=== PATIENT | female | born 1990 | race American Indian/Alaskan Native ===

== ENCOUNTER 2019-11-30 23:36 | Emergency (ER) | payer MEDICAID ==
[2019-12-01 00:50] LABS: Bacteria,Urine 1+ /HPF (Negative); Bilirubin,Urine NEG (Negative); Blood,Urine MOD (Negative); Color,Urine Yellow (Yellow); Mucus,Urine FEW /HPF; Protein,Urine <15 mg/dL mg/dL (Negative); Urobilinogen,Urine < 2.0 mg/dL (<2.0)
[2019-12-01 01:03] LABS: Basophils # (Auto) 0.1 K/mm3 (0.0-0.1); Basophils % (Auto) 1.1 % (0.0-1.8); Eosinophils # (Auto) 0.1 K/mm3 (0.0-0.4); Eosinophils % (Auto) 2.1 % (0.0-4.3); Hematocrit 41.7 % (30.3-42.9); Hemoglobin 13.9 gm/dl (10.1-14.3); Lymphocytes # (Auto) 2.4 K/mm3 (1.2-5.4); Lymphocytes % (Auto) 47.9 % (13.4-35.0); Mean Corpuscular HGB Conc 33 % (30-34); Mean Corpuscular Volume 91 fl (79-97); Monocytes # (Auto) 0.5 K/mm3 (0.0-0.8); Platelet Count 173 K/mm3 (140-440); Red Cell Distribution Width 15.2 % (13.2-15.2)
[2019-12-01 01:18] LABS: Alanine Aminotransferase 41 units/L (7-56); Albumin 3.7 g/dL (3.9-5); BUN/Creatinine Ratio 11; Blood Urea Nitrogen 10 mg/dL (7-17); Calcium 8.8 mg/dL (8.4-10.2); Hemolysis Index 11
[2019-12-01 03:20] VITALS: BP 120/78
== END 2019-12-01 03:17 | disposition home or self-care (01) ==
LOC: ED 23:36
DX: R10.9 Unspecified abdominal pain (principal); Z53.21 Procedure and treatment not carried out due to patient leaving prior to being seen by health care provider
CPT/HCPCS: 36415; 80053; 81001; 83690; 84703; 85025

== ENCOUNTER 2020-07-09 21:45 | Emergency (ER) | payer MEDICAID | END 2020-07-09 23:30 | disposition left against medical advice (07) | LOC: ED 21:45 | DX: R10.9 Unspecified abdominal pain (principal); Z53.21 Procedure and treatment not carried out due to patient leaving prior to being seen by health care provider ==

== ENCOUNTER 2021-02-18 05:59 | Emergency (ER) | payer MEDICAID, OTHER ==
[2021-02-18 06:28] VITALS: BP 110/74
--- NOTE | 2021-02-18 07:53 | Emergency Department Report ---
ED Abdominal Pain HPI - General Chief Complaint: Abdominal Pain Stated Complaint: ABD PAIN Time Seen by Provider: 02/18/21 07:49 Source: patient Mode of arrival: Ambulatory Limitations: No Limitations - History of Present Illness Initial Comments: 30-year-old -[place] female presents to the emergency room complaining of severe abdominal pain for greater than 6 months. Patient states that the pain is worse on empty stomach. She states it is located the epigastric area. She states she sometimes gets nauseated. Pain is worse at night. She reports she is increasing her cigarette use as this helps calm her stomach. Patient does have a primary care provider Dr. Shipman but has not checked in with her. Patient has no past medical history currently just taken Tylenol for discomfort. Denies any dysuria no vomiting no fever no chills no chest pain no back pain. MD Complaint: abdominal pain Onset/Timin -: month(s) Location: epigastric Radiation: none Severity scale (0 -10): 5 - Related Data Previous Rx's Medication Instructions Recorded Last Taken Type Omeprazole 40 mg PO DAILY #30 capsule. 12/01/19 Unknown Rx Nitrofurantoin [place]/M-Cryst 100 mg PO Q12HR 10 Days #20 capsule 02/18/21 Unknown Rx [Macrobid CAP] Allergies Allergy/AdvReac Type Severity Reaction Status Date / Time No Known Allergies Allergy Verified 11/30/19 23:55 ED Review of Systems ROS: Stated complaint: ABD PAIN Other details as noted in HPI ED Past Medical Hx - Past Medical History Previous Medical History?: No - Surgical History Past Surgical History?: No - Social History Smoking Status: Never Smoker Substance Use Type: None - Medications Home Medications: Home Medications Medication Instructions Recorded Confirmed Last Taken Type Omeprazole 40 mg PO DAILY #30 capsule. 12/01/19 Unknown Rx Nitrofurantoin [place]/M-Cryst 100 mg PO Q12HR 10 Days #20 capsule 02/18/21 Unknown Rx [Macrobid CAP] ED Physical Exam - General Limitations: No Limitations General appearance: alert, in no apparent distress - Head Head exam: Present: atraumatic, normocephalic - Eye Eye exam: Present: normal appearance - Neck Neck exam: Present: normal inspection, full ROM - Respiratory Respiratory exam: Absent: accessory muscle use - Cardiovascular Cardiovascular Exam: Present: regular rate - GI/Abdominal GI/Abdominal exam: Present: soft. Absent: distended, tenderness - Extremities Exam Extremities exam: Present: normal inspection - Back Exam Back exam: Present: normal inspection - Neurological Exam Neurological exam: Present: alert, oriented X3, normal gait - Psychiatric Psychiatric exam: Present: normal affect, normal mood - Skin Skin exam: Present: warm, dry, intact, normal color. Absent: rash ED Course Vital Signs 02/18/21 06:28 Temperature 99 F Pulse Rate 86 Respiratory 18 Rate Blood Pressure 110/74 [Left] O2 Sat by Pulse 100 Oximetry ED Medical Decision Making - Lab Data Result diagrams: 02/18/21 07:09 02/18/21 07:09 - Medical Decision Making 30-year-old -[place] female presents to the emergency room complaining of severe abdominal pain for greater than 6 months. Patient states that the pain is worse on empty stomach. She states it is located the epigastric area. She states she sometimes gets nauseated. Pain is worse at night. She reports she is increasing her cigarette use as this helps calm her stomach. Patient does have a primary care provider Dr. Shipman but has not checked in with her. Patient has no past medical history currently just taken Tylenol for discomfort. Denies any dysuria no vomiting no fever no chills no chest pain no back pain. CBC CMP urinalysis Urinalysis shows urinary tract infection with positive nitrates 51 WBCs. Patient be placed on Macrobid 100 mg p.o. twice daily for 10 days. Instructed to increase her fluid intake. Void after intercourse. Do not hold your urine. Patient is recommended to follow-up with her primary care provider as well as a bearing maker and [facility]. Critical care attestation.: If time is entered above; I have spent that time in minutes in the direct care of this critically ill patient, excluding procedure time. ED Disposition Clinical Impression: UTI (urinary tract infection) Disposition: -01 TO HOME OR SELFCARE Is pt being admited?: No Does the pt Need Aspirin: No Condition: Stable Instructions: Abdominal Pain (ED), Urinary Tract Infection, Adult, [id number] Additional Instructions: Blood work looks good. Your urine shows that you have a urinary tract infection. I recommend to complete antibiotics as prescribed. Increase your fluid intake. Void after intercourse. Do not hold your urine for long period of time. Prescriptions: Nitrofurantoin [place]/M-Cryst [Macrobid CAP] 100 mg PO Q12HR 10 Days #20 capsule Referrals: [facility] [Other] - 3-5 Days [facility] [Provider Group] - 3-5 Days [facility] [Provider Group] - 3-5 Days Time of Disposition: 09:30
[2021-02-18 07:54] LABS: Basophils % (Auto) 0.6 % (0.0-1.8); Eosinophils # (Auto) 0.1 K/mm3 (0.0-0.4); Eosinophils % (Auto) 2.2 % (0.0-4.3); Hemoglobin 14.4 gm/dl (10.1-14.3); Lymphocytes # (Auto) 1.8 K/mm3 (1.2-5.4); Lymphocytes % (Auto) 26.4 % (13.4-35.0); Mean Corpuscular HGB Conc 34 % (30-34); Mean Corpuscular Volume 93 fl (79-97); Monocytes # (Auto) 0.7 K/mm3 (0.0-0.8); Monocytes % (Auto) 10.7 % (0.0-7.3); Platelet Count 168 K/mm3 (140-440); Red Blood Count 4.62 M/mm3 (3.65-5.03); Red Cell Distribution Width 14.8 % (13.2-15.2)
[2021-02-18 08:18] LABS: Alanine Aminotransferase 11 units/L (7-56); Blood Urea Nitrogen 7 mg/dL (7-17); Calcium 8.9 mg/dL (8.4-10.2); Hemolysis Index 1
[2021-02-18] MEDS ORDERED: DICYCLOMINE 10 MG/5 ML ORAL LIQD PO ONE (08:20)
[2021-02-18] MEDS ORDERED: FAMOTIDINE 20 MG TAB PO ONE (08:20)
[2021-02-18 08:21] LABS: BUN/Creatinine Ratio 10
[2021-02-18 08:21] LABS: Bacteria,Urine 4+ /HPF (Negative); Bilirubin,Urine NEG (Negative); Blood,Urine SM (Negative); Color,Urine Yellow (Yellow); Mucus,Urine FEW /HPF; Protein,Urine <15 mg/dL mg/dL (Negative); Urobilinogen,Urine < 2.0 mg/dL (<2.0)
== END 2021-02-18 09:36 | disposition home or self-care (01) ==
LOC: ED 05:59
DX: N39.0 Urinary tract infection, site not specified (principal); Z79.899 Other long term (current) drug therapy
CPT/HCPCS: 36415; 80053; 81001; 83690; 85025; 87086; 99283